=== PATIENT | male | born 1990 | race Two or more races ===

== ENCOUNTER 2018-10-18 17:36 | Emergency (ER) | payer MEDICAID ==
[~2018-10-18] VITALS: Ht 170.2 cm; Wt 59.0 kg
[2018-10-19 00:05] VITALS: BP 117/78
== END 2018-10-19 00:11 | disposition home or self-care (01) ==
LOC: ER 17:36
DX: G40.909 Epilepsy, unspecified, not intractable, without status epilepticus (principal)
CPT/HCPCS: 36415; 70450; 80165; 99284; Z7610